=== PATIENT | male | born 1940 | race Caucasian/White ===

== ENCOUNTER 2019-09-29 08:51 | Inpatient (IN) | payer MEDICARE ==
[2019-09-29] MEDS ORDERED: Potassium Chloride 20 MEQ in Premix Bag 1 BAG IV ONE ×2 (09:59→11:00)
[2019-09-29] MEDS: Sodium Chloride 0.9% 10 ML Syringe FLUSH PRN ×2 (10:20→20:51)
[2019-09-29] MEDS: NS + KCl 20mEq/L 1,000 ML IV SCH ×2 (10:22→20:12)
--- NOTE | 2019-09-29 10:34 | EDM.PDOC ---
ED HPI GENERAL MEDICAL PROBLEM - General Chief Complaint: General Stated Complaint: WEAKNESS Time Seen by Provider: 09/29/19 09:00 Source of Information: Reports: Patient, Family History Limitations: Reports: Other (dementia) - History of Present Illness INITIAL COMMENTS - FREE TEXT/NARRATIVE: pt with Hx of dementia, comes by EMS from home with , with concerns for gen weakness, confusion, poor feeding and unwitnessed fall this morning with no injuries, pt here on arrival has stable vitals , alert and follow simple commands, he has dementia and unable to provide Hx, pt Hx was obtained from his , she report chronic confusion for the past 3 years and gradual decline in pt condition since then, states pt is hardly leaving his bed and hardly eat anything lately, states he is frequently incontinent to stool and urine, continue to smoke and denies alcohol use. - Related Data Allergies Allergy/AdvReac Type Severity Reaction Status Date / Time No Known Allergies Allergy Unverified 09/29/19 09:11 Home Meds: Home Meds Aspirin 81 mg PO DAILY 09/29/19 [History] Cholecalciferol (Vitamin D3) [Vitamin D3] 1,000 unit PO DAILY 09/29/19 [History] Lisinopril/Hydrochlorothiazide [Lisinopril-Hctz 20-12.5 mg Tab] 1 tab DAILY 09/29/19 [History] Past Medical History Cardiovascular History: Reports: Hypertension Psychiatric History: Reports: Addiction, Dementia Other Psychiatric History: hx etoh abuse - Infectious Disease History Infectious Disease History: Reports: Chicken Pox, Measles, Mumps - Past Surgical History GI Surgical History: Reports: Appendectomy Social & Family History - Family History Family Medical History: Noncontributory - Tobacco Use Smoking Status *Q: Current Every Day Smoker Years of Tobacco use: 55 Packs/Tins Daily: 1 - Caffeine Use Caffeine Use: Reports: Soda - Recreational Drug Use Recreational Drug Use: No ED ROS GENERAL - Review of Systems Review Of Systems: See Below (secondary to dementia.) Constitutional: Denies: Fever ED EXAM, GENERAL - Physical Exam Exam: See Below Exam Limited By: Altered Mental Status General Appearance: Mild Distress, Other (pt is disheveled and cachectic) Ears: Normal External Exam Nose: Normal Inspection, Normal Mucosa Throat/Mouth: Normal Inspection Head: Atraumatic Neck: Normal Inspection, Supple Respiratory/Chest: No Respiratory Distress, Lungs Clear Cardiovascular: Normal Peripheral Pulses, Regular Rate, Rhythm GI/Abdominal: Normal Bowel Sounds, Soft, Non-Tender, No Distention Back Exam: Normal Inspection Extremities: Normal Inspection, Normal Range of Motion Neurological: Alert, CN II-XII Intact, Normal Reflexes. No: Normal Cognition Psychiatric: Anxious Skin Exam: Warm Course - Vital Signs Text/Narrative:: labs/ imaging / EKG results were explained to pt ... pt has progressive deconditioning and critical hypokalemia . will admit inpatient on tell , hold lisinopril/HCT , replace hypokalemia . pt does not have advanced directives and his indicated her wishes for a no code status for the pt. discussed with Dr Feliciano and he was in acceptance of pt care. Last Recorded V/S: Last Vital Signs Temp 37.0 C 09/29/19 08:51 Pulse 107 H 09/29/19 08:51 Resp 18 09/29/19 08:51 BP 110/72 09/29/19 08:51 Pulse Ox 98 09/29/19 08:51 - Orders/Labs/Meds Orders: Active Orders 24 hr Category Date Time Status Chest 1V Frontal [CR] Stat Exams 09/29/19 09:20 Taken Head wo Cont [CT] Stat Exams 09/29/19 09:20 Taken UA W/MICROSCOPIC [URIN] Routine Lab 09/29/19 09:19 Ordered NS + KCl 20mEq/L [Normal Saline with 20 mEq KCl] 1,000 Med 09/29/19 10:00 Active ml IV ASDIRECTED Potassium Chloride [KCL 20 MEQ in Water 100 ML] 20 meq Med 09/29/19 11:00 Active Premix Bag 1 bag IV ONETIME Sodium Chloride 0.9% [Saline Flush] Med 09/29/19 09:59 Active 10 ml FLUSH ASDIRECTED PRN Peripheral IV Insertion Adult [OM.PC] Routine Oth 09/29/19 09:59 Ordered Medication Orders Potassium Chloride/Sodium Chloride (Normal Saline With 20 Meq Kcl) 1,000 mls @ 100 mls/hr IV ASDIRECTED KARUNA Last Admin: 09/29/19 10:22 Dose: 100 mls/hr Documented by: RERE Potassium Chloride 20 meq/ (Premix) 100 mls @ 50 mls/hr IV ONETIME ONE Stop: 09/29/19 12:59 Sodium Chloride (Saline Flush) 10 ml FLUSH ASDIRECTED PRN PRN Reason: Keep Vein Open Last Admin: 09/29/19 10:20 Dose: 10 ml Documented by: RERE Labs: Laboratory Tests 09/29/19 09/29/19 Range/Units 09:00 09:00 WBC 12.4 H (4.5-12.0) X10-3/uL RBC 4.16 L (4.30-5.75) x10(6)uL Hgb 12.9 L (13.5-17.8) g/dL Hct 39.3 (30.0-51.3) % MCV 94.7 (80-96) fL MCH 31.0 (27.7-33.6) pg MCHC 32.8 (32.2-35.4) g/dL RDW 15.4 (11.5-15.5) % Plt Count 318 (125-369) X10(3)uL MPV 8.6 (7.4-10.4) fL Neut % (Auto) 80.0 (46-82) % Lymph % (Auto) 15.3 (13-37) % [place] % (Auto) 4.2 (4-12) % Eos % (Auto) 0 L (1.0-5.0) % Baso % (Auto) 0 (0-2) % Neut # (Auto) 10.0 H (1.6-8.3) # Lymph # (Auto) 1.9 (0.6-5.0) # [place] # (Auto) 0.5 (0.0-1.3) # Eos # (Auto) 0.0 (0.0-0.8) # Baso # (Auto) 0.0 (0.0-0.2) # Sodium 141 (135-145) mmol/L Potassium < 1.5 L* (3.5-5.3) mmol/L Chloride 97 L (100-110) mmol/L Carbon Dioxide 36 H (21-32) mmol/L BUN 20 H (7-18) mg/dL Creatinine 1.5 H (0.70-1.30) mg/dL Est Cr Clr Drug Dosing 30.43 mL/min Estimated GFR (MDRD) 45 L (>60) BUN/Creatinine Ratio 13.3 (9-20) Glucose 123 H (80-116) mg/dL Calcium 7.5 L (8.6-10.2) mg/dL Total Bilirubin 0.9 (0.1-1.3) mg/dL AST 45 H (5-25) IU/L ALT 18 (12-36) U/L Alkaline Phosphatase 79 (56-112) IU/L Total Protein 6.5 (6.0-8.0) g/dL Albumin 2.4 L (3.2-4.6) g/dL Globulin 4.1 g/dL Albumin/Globulin Ratio 0.6 Meds: Medications Generic Name Dose Route Start Last Admin Trade Name Freq PRN Reason Stop Dose Admin Potassium Chloride/Sodium Chloride 1,000 mls @ 100 mls/hr 09/29/19 10:00 09/29/19 10:22 Normal Saline With 20 Meq Kcl IV 100 mls/hr ASDIRECTED KARUNA Administration Potassium Chloride 20 meq/ 100 mls @ 50 mls/hr 09/29/19 11:00 Premix IV 09/29/19 12:59 ONETIME ONE Sodium Chloride 10 ml 09/29/19 09:59 09/29/19 10:20 Saline Flush FLUSH 10 ml ASDIRECTED PRN Administration Keep Vein Open Discontinued Medications Generic Name Dose Route Start Last Admin Trade Name Freq PRN Reason Stop Dose Admin Potassium Chloride 20 meq/ 100 mls @ 50 mls/hr 09/29/19 09:59 09/29/19 10:24 Premix IV 09/29/19 11:58 50 mls/hr ONETIME ONE Administration Potassium Chloride 20 meq 09/29/19 11:00 Potassium Chloride IV 09/29/19 11:01 ONETIME ONE Departure - Departure Time of Disposition: 12:09 Disposition: Admitted As Inpatient 68 Clinical Impression: Hypokalemia - Discharge Information Referrals: Alexandrea Cervantes NP [Primary Care Provider] - Forms: ED Department Discharge Sepsis Event Note (ED) - Evaluation Sepsis Screening Result: No Definite Risk - Focused Exam Vital Signs: Vital Signs Temp Pulse Resp BP Pulse Ox 09/29/19 08:51 37.0 C 107 H 18 110/72 98 - My Orders Last 24 Hours: My Active Orders 09/29/19 09:19 UA W/MICROSCOPIC [URIN] Routine 09/29/19 09:20 Chest 1V Frontal [CR] Stat Head wo Cont [CT] Stat 09/29/19 09:59 Sodium Chloride 0.9% [Saline Flush] 10 ml FLUSH ASDIRECTED PRN Peripheral IV Insertion Adult [OM.PC] Routine 09/29/19 10:00 NS + KCl 20mEq/L [Normal Saline with 20 mEq KCl] 1,000 ml IV ASDIRECTED 09/29/19 11:00 Potassium Chloride [KCL 20 MEQ in Water 100 ML] 20 meq Premix Bag 1 bag IV ONETIME - Assessment/Plan Last 24 Hours: My Active Orders 09/29/19 09:19 UA W/MICROSCOPIC [URIN] Routine 09/29/19 09:20 Chest 1V Frontal [CR] Stat Head wo Cont [CT] Stat 09/29/19 09:59 Sodium Chloride 0.9% [Saline Flush] 10 ml FLUSH ASDIRECTED PRN Peripheral IV Insertion Adult [OM.PC] Routine 09/29/19 10:00 NS + KCl 20mEq/L [Normal Saline with 20 mEq KCl] 1,000 ml IV ASDIRECTED 09/29/19 11:00 Potassium Chloride [KCL 20 MEQ in Water 100 ML] 20 meq Premix Bag 1 bag IV ONETIME
[2019-09-29] MEDS ORDERED: Potassium Chloride 40 MEQ/20 ML SDV IV ONE (11:00)
[2019-09-29] MEDS ORDERED: Ondansetron 4 MG Tab.DIS PO PRN (12:15)
[2019-09-29] MEDS ORDERED: Sodium Chloride 0.9% 1,000 ML IV SCH (12:15)
[2019-09-29] MEDS ORDERED: Acetaminophen 325 MG Tab PO PRN (12:15)
[2019-09-29] MEDS ORDERED: Ibuprofen 600 MG Tab PO PRN (12:15)
[2019-09-29] MEDS ORDERED: Sodium Chloride 0.9% 1,000 ML IV ONE (17:45)
[2019-09-29] MEDS ORDERED: Nicotine 21 MG/24 Hr Patch TRDERM ONE (17:57)
--- NOTE | 2019-09-29 17:57 | PCM.HP.2 ---
H&P History of Present Illness - General Date of Service: 09/29/19 Admit Problem/Dx: Admission Diagnosis/Problem Admission Diagnosis/Problem Hypokalemia Source of Information: Patient, Family, Old Records History Limitations: Reports: No Limitations - History of Present Illness Initial Comments - Free Text/Narative: Jean Marie presents because of weakness, a fall at home, anorexia/weight loss. His reported that the symptoms have been progressively worsening over the last few months but last week he has hardly eaten anything. He has a history of hypertension, tobacco abuse. He does endorse feeling feeling depressed and tired 2 days lost excess amount of weight. There's been no vomiting ,but he does endorse chronic diarrhea. No chest pain or shortness of breath. - Related Data Allergies/Adverse Reactions: Allergies Allergy/AdvReac Type Severity Reaction Status Date / Time No Known Allergies Allergy Unverified 09/29/19 09:11 Home Medications: Home Meds Aspirin 81 mg PO DAILY 09/29/19 [History] Cholecalciferol (Vitamin D3) [D3-2000] 125 mcg PO DAILY 09/29/19 [History] Iron 27 mg PO DAILY 09/29/19 [History] Lisinopril/Hydrochlorothiazide [Lisinopril-Hctz 20-12.5 mg Tab] 1 tab DAILY 0 09/29/19 [History] Past Medical History HEENT History: Reports: Epistaxis Cardiovascular History: Reports: Hypertension Gastrointestinal History: Reports: None Genitourinary History: Reports: None Neurological History: Reports: None Psychiatric History: Reports: Addiction, Dementia, Depression Other Psychiatric History: hx etoh abuse - Infectious Disease History Infectious Disease History: Reports: Chicken Pox, Measles, Mumps - Past Surgical History HEENT Surgical History: Reports: Tonsillectomy, Other (See Below) Other HEENT Surgeries/Procedures: remove teeth for dentures Cardiovascular Surgical History: Reports: None GI Surgical History: Reports: Appendectomy Male Surgical History: Reports: Circumcision Neurological Surgical History: Reports: None Dermatological Surgical History: Reports: None Social & Family History - Family History Family Medical History: Noncontributory - Tobacco Use Smoking Status *Q: Current Every Day Smoker Years of Tobacco use: 60 Packs/Tins Daily: 0.5 Used Tobacco, but Quit: No Second Hand Smoke Exposure: No - Caffeine Use Caffeine Use: Reports: Soda - Recreational Drug Use Recreational Drug Use: No H&P Review of Systems - Review of Systems: Review Of Systems: Comprehensive ROS is negative, except as noted in HPI. Exam - Exam Exam: See Below - Vital Signs Vital Signs: Last Vital Signs Temp 97 F 09/29/19 16:00 Pulse 56 L 09/29/19 16:00 Resp 16 09/29/19 16:00 BP 99/62 09/29/19 16:00 Pulse Ox 96 09/29/19 16:00 Weight: 51.982 kg - Exam Quality Assessment: Skin Breakdown General: Lethargic, Other (Cachetitic,poorly groomed.) HEENT: PERRLA, Hearing Intact, Mucosa Moist & [place], Nares Patent, Normal Nasal Septum, Posterior Pharynx Clear, Conjunctiva Clear, EOMI, EACs Clear, TMs Clear Neck: Supple, Trachea Midline, 2 Lungs: Clear to Auscultation, Normal Respiratory Effort Cardiovascular: Regular Rate, Regular Rhythm GI/Abdominal Exam: Normal Bowel Sounds, Soft, Non-Tender, No Organomegaly, No Distention, No Abnormal Bruit, No Mass, Pelvis Stable (Male) Exam: Deferred Rectal (Males) Exam: Deferred Back Exam: Normal Inspection, Full Range of Motion, NT Extremities: Normal Inspection, Normal Range of Motion, Non-Tender, No Pedal Edema, Normal Capillary Refill Skin: Warm, Dry, Intact Neurological: Cranial Nerves Intact, Reflexes Equal Bilateral Neuro Extensive - Mental Status: Alert, Oriented x3, Normal Mood/Affect, Normal Cognition Neuro Extensive - Motor, Sensory, Reflexes: CN II-XII Intact, Normal Gait, Normal Reflexes Psychiatric: Alert, Normal Affect, Normal Mood - Patient Data Lab Results Last 24 hrs: Laboratory Results - last 24 hr 09/29/19 09/29/19 Range/Units 09:00 09:00 WBC 12.4 H (4.5-12.0) X10-3/uL RBC 4.16 L (4.30-5.75) x10(6)uL Hgb 12.9 L (13.5-17.8) g/dL Hct 39.3 (30.0-51.3) % MCV 94.7 (80-96) fL MCH 31.0 (27.7-33.6) pg MCHC 32.8 (32.2-35.4) g/dL RDW 15.4 (11.5-15.5) % Plt Count 318 (125-369) X10(3)uL MPV 8.6 (7.4-10.4) fL Neut % (Auto) 80.0 (46-82) % Lymph % (Auto) 15.3 (13-37) % [place] % (Auto) 4.2 (4-12) % Eos % (Auto) 0 L (1.0-5.0) % Baso % (Auto) 0 (0-2) % Neut # (Auto) 10.0 H (1.6-8.3) # Lymph # (Auto) 1.9 (0.6-5.0) # [place] # (Auto) 0.5 (0.0-1.3) # Eos # (Auto) 0.0 (0.0-0.8) # Baso # (Auto) 0.0 (0.0-0.2) # Sodium 141 (135-145) mmol/L Potassium < 1.5 L* (3.5-5.3) mmol/L Chloride 97 L (100-110) mmol/L Carbon Dioxide 36 H (21-32) mmol/L BUN 20 H (7-18) mg/dL Creatinine 1.5 H (0.70-1.30) mg/dL Est Cr Clr Drug Dosing 30.43 mL/min Estimated GFR (MDRD) 45 L (>60) BUN/Creatinine Ratio 13.3 (9-20) Glucose 123 H (80-116) mg/dL Calcium 7.5 L (8.6-10.2) mg/dL Total Bilirubin 0.9 (0.1-1.3) mg/dL AST 45 H (5-25) IU/L ALT 18 (12-36) U/L Alkaline Phosphatase 79 (56-112) IU/L Total Protein 6.5 (6.0-8.0) g/dL Albumin 2.4 L (3.2-4.6) g/dL Globulin 4.1 g/dL Albumin/Globulin Ratio 0.6 Result Diagrams: 09/29/19 09:00 09/29/19 09:00 EKG INTERPRETATION EKG Date: 09/29/19 Rhythm: NSR ST-T: Depressed Comparison: NA - No Prior EKG Sepsis Event Note - Evaluation Sepsis Screening Result: No Definite Risk - Focused Exam Vital Signs: Vital Signs Temp Temp Pulse Resp BP Pulse Ox 09/29/19 16:00 97 F 56 L 16 99/62 96 09/29/19 13:20 98.5 F 58 L 16 115/74 98 09/29/19 12:03 58 L 18 147/102 H 98 09/29/19 10:57 68 18 119/72 93 L 09/29/19 09:31 51 L 18 120/58 L 99 09/29/19 08:51 98.6 F 107 H 18 110/72 98 Date Exam was Performed: 09/29/19 Time Exam was Performed: 17:53 - Problem List (1) Cachexia SNOMED Code(s): 135229979 ICD Code: R64 - CACHEXIA Status: Acute Current Visit: Yes (2) Tobacco abuse SNOMED Code(s): 297844446 ICD Code: Z72.0 - TOBACCO USE Status: Acute Current Visit: Yes (3) HTN (hypertension) SNOMED Code(s): 03619333 ICD Code: I10 - ESSENTIAL (PRIMARY) HYPERTENSION Status: Acute Current Visit: Yes Qualifiers: Hypertension type: essential hypertension Qualified Code(s): I10 - Essential (primary) hypertension (4) MDD (major depressive disorder) SNOMED Code(s): 308799462 ICD Code: F32.9 - MAJOR DEPRESSIVE DISORDER, SINGLE EPISODE, UNSPECIFIED Status: Acute Current Visit: Yes Qualifiers: Major depression recurrence: single episode (5) Hypokalemia SNOMED Code(s): 31156542 ICD Code: E87.6 - HYPOKALEMIA Status: Acute Current Visit: Yes (6) Anorexia SNOMED Code(s): 84616415 ICD Code: R63.0 - ANOREXIA Status: Acute Current Visit: Yes (7) ISABELA (acute kidney injury) SNOMED Code(s): 16974027, 14799603 ICD Code: N17.9 - ACUTE KIDNEY FAILURE, UNSPECIFIED Status: Acute Current Visit: Yes Problem List Initiated/Reviewed/Updated: Yes Orders Last 24hrs: Active Orders 24 hr Category Date Time Status Patient Status [ADT] Routine ADT 09/29/19 12:16 Active Oxygen Therapy [RC] PRN Care 09/29/19 12:16 Active Telemetry Monitoring [Cardiac Monitoring] [RC] .As Care 09/29/19 12:21 Active Directed VTE/DVT Education [RC] Per Unit Routine Care 09/29/19 12:16 Active Vital Signs [RC] QSHIFT Care 09/29/19 12:16 Active Regular Diet [DIET] Diet 09/30/19 Breakfast Ordered Chest 1V Frontal [CR] Stat Exams 09/29/19 09:20 Taken Head wo Cont [CT] Stat Exams 09/29/19 09:20 Taken BASIC METABOLIC PANEL,BMP [CHEM] Routine Lab 09/29/19 18:00 Ordered CBC WITH AUTO DIFF [HEME] AM Lab 09/30/19 05:11 Ordered COMPREHENSIVE METABOLIC PN,CMP [CHEM] AM Lab 09/30/19 05:11 Ordered MAGNESIUM [CHEM] AM Lab 09/30/19 05:11 Ordered UA W/MICROSCOPIC [URIN] Routine Lab 09/29/19 09:19 Ordered Acetaminophen [Tylenol] Med 09/29/19 12:15 Active 650 mg PO Q4H PRN Aspirin [Halfprin] Med 09/30/19 09:00 Active 81 mg PO DAILY Cholecalciferol (Vitamin D3) [Vitamin D3] Med 09/30/19 09:00 Active 125 mcg PO DAILY Ibuprofen [Motrin] Med 09/29/19 12:15 Active 600 mg PO Q6H PRN Iron [Iron] Med 09/30/19 09:00 Pending 27 mg PO DAILY Megestrol [Megace 40 MG/ML Susp] Med 09/30/19 09:00 Active 400 mg PO DAILY NS + KCl 20mEq/L [Normal Saline with 20 mEq KCl] 1,000 Med 09/29/19 10:00 Active ml IV ASDIRECTED Ondansetron [Zofran ODT] Med 09/29/19 12:15 Active 4 mg PO Q4H PRN Potassium Chloride [KCL 20 MEQ in Water 100 ML] 20 meq Med 09/29/19 18:00 Active Premix Bag 1 bag IV Q6H Sodium Chloride 0.9% [Normal Saline] 1,000 ml Med 09/29/19 17:45 Active IV ONETIME Sodium Chloride 0.9% [Saline Flush] Med 09/29/19 09:59 Active 10 ml FLUSH ASDIRECTED PRN Peripheral IV Insertion Adult [OM.PC] Routine Oth 09/29/19 09:59 Ordered Resuscitation Status Routine Resus Stat 09/29/19 12:15 Ordered Medication Orders Acetaminophen (Tylenol) 650 mg PO Q4H PRN PRN Reason: Pain (Mild 1-3)/fever Aspirin (Halfprin) 81 mg PO DAILY KARUNA Cholecalciferol (Vitamin D3) 125 mcg PO DAILY KARUNA Potassium Chloride/Sodium Chloride (Normal Saline With 20 Meq Kcl) 1,000 mls @ 100 mls/hr IV ASDIRECTED KARUNA Last Admin: 09/29/19 10:22 Dose: 100 mls/hr Documented by: RERE Sodium Chloride (Normal Saline) 1,000 mls @ 999 mls/hr IV ONETIME ONE Stop: 09/29/19 18:45 Potassium Chloride 20 meq/ (Premix) 100 mls @ 50 mls/hr IV Q6H KARUNA Ibuprofen (Motrin) 600 mg PO Q6H PRN PRN Reason: Pain (mild 1-3) Megestrol Acetate (Megace 40 Mg/Ml Susp) 400 mg PO DAILY [facility] Non-Formulary Medication (Iron [Iron]) 27 mg PO DAILY KARUNA Ondansetron HCl (Zofran Odt) 4 mg PO Q4H PRN PRN Reason: nausea, able to take PO Sodium Chloride (Saline Flush) 10 ml FLUSH ASDIRECTED PRN PRN Reason: Keep Vein Open Last Admin: 09/29/19 10:20 Dose: 10 ml Documented by: RERE Assessment/Plan Comment:: I will give him fluids, and replace potassium. I've added Megace to help his appetite and will start an antidepressant,mirtazapine. He probably needs further workup possibly CT chest abdomen pelvis colonoscopy if he so agrees.
[2019-09-29] MEDS: Potassium Chloride 20 MEQ in Premix Bag 1 BAG IV SCH ×2 (18:32→23:24)
[2019-09-29] MEDS: Mirtazapine 30 MG Tab PO SCH (20:27)
[2019-09-30] MEDS: Potassium Chloride 20 MEQ in Premix Bag 1 BAG IV SCH ×4 (05:07→23:29)
[2019-09-30] MEDS: NS + KCl 20mEq/L 1,000 ML IV SCH ×2 (07:27→17:58)
[2019-09-30] MEDS ORDERED: IRON 27 MG PO SCH (09:00)
--- NOTE | 2019-09-30 09:17 | PCM.PN ---
- General Info Date of Service: 09/30/19 Subjective Update: He feels weak,wants to go home. Agitated at times. Functional Status: Reports: Pain Controlled - Review of Systems HEENT: Reports: No Symptoms Pulmonary: Reports: No Symptoms Cardiovascular: Reports: No Symptoms Gastrointestinal: Reports: No Symptoms - Patient Data Vitals - Most Recent: Last Vital Signs Temp 98.1 F 09/30/19 07:23 Pulse 90 09/30/19 00:00 Resp 20 09/30/19 07:23 BP 127/84 09/30/19 07:23 Pulse Ox 99 09/30/19 07:23 Weight - Most Recent: 51.982 kg I&O - Last 24 Hours: Intake & Output 09/29/19 09/30/19 09/30/19 22:59 06:59 14:59 Intake Total 100 1856 Balance 100 1856 Lab Results Last 24 Hours: Laboratory Results - last 24 hr 09/29/19 09/29/19 09/29/19 Range/Units 09:00 09:00 18:00 WBC 12.4 H (4.5-12.0) X10-3/uL RBC 4.16 L (4.30-5.75) x10(6)uL Hgb 12.9 L (13.5-17.8) g/dL Hct 39.3 (30.0-51.3) % MCV 94.7 (80-96) fL MCH 31.0 (27.7-33.6) pg MCHC 32.8 (32.2-35.4) g/dL RDW 15.4 (11.5-15.5) % Plt Count 318 (125-369) X10(3)uL MPV 8.6 (7.4-10.4) fL Neut % (Auto) 80.0 (46-82) % Lymph % (Auto) 15.3 (13-37) % [place] % (Auto) 4.2 (4-12) % Eos % (Auto) 0 L (1.0-5.0) % Baso % (Auto) 0 (0-2) % Neut # (Auto) 10.0 H (1.6-8.3) # Lymph # (Auto) 1.9 (0.6-5.0) # [place] # (Auto) 0.5 (0.0-1.3) # Eos # (Auto) 0.0 (0.0-0.8) # Baso # (Auto) 0.0 (0.0-0.2) # Sodium 141 141 (135-145) mmol/L Potassium < 1.5 L* 1.6 L* (3.5-5.3) mmol/L Chloride 97 L 100 (100-110) mmol/L Carbon Dioxide 36 H 34 H (21-32) mmol/L BUN 20 H 21 H (7-18) mg/dL Creatinine 1.5 H 1.3 (0.70-1.30) mg/dL Est Cr Clr Drug Dosing 30.43 34.99 mL/min Estimated GFR (MDRD) 45 L 54 L (>60) BUN/Creatinine Ratio 13.3 16.2 (9-20) Glucose 123 H 116 (80-116) mg/dL Calcium 7.5 L 7.1 L (8.6-10.2) mg/dL Magnesium (1.8-2.5) mg/dL Total Bilirubin 0.9 (0.1-1.3) mg/dL AST 45 H (5-25) IU/L ALT 18 (12-36) U/L Alkaline Phosphatase 79 (56-112) IU/L Total Protein 6.5 (6.0-8.0) g/dL Albumin 2.4 L (3.2-4.6) g/dL Globulin 4.1 g/dL Albumin/Globulin Ratio 0.6 Urine Color (YELLOW) Urine Appearance (CLEAR) Urine pH (5.0-6.5) Ur Specific [place] (1.010-1.025) Urine Protein (NEGATIVE) mg/dL Urine Glucose (UA) (NORMAL) mg/dL Urine Ketones (NEGATIVE) mg/dL Urine Occult Blood (NEGATIVE) Urine Nitrite (NEGATIVE) Urine Bilirubin (NEGATIVE) Urine Urobilinogen (NEGATIVE) mg/dL Ur Leukocyte Esterase (NEGATIVE) SARS Virus RNA (PCR) (NEGATIVE) 09/29/19 09/30/19 09/30/19 Range/Units 22:00 01:47 06:30 WBC 10.5 (4.5-12.0) X10-3/uL RBC 3.48 L (4.30-5.75) x10(6)uL Hgb 11.0 L (13.5-17.8) g/dL Hct 32.8 (30.0-51.3) % MCV 94.4 (80-96) fL MCH 31.8 (27.7-33.6) pg MCHC 33.6 (32.2-35.4) g/dL RDW 15.7 H (11.5-15.5) % Plt Count 253 (125-369) X10(3)uL MPV 8.9 (7.4-10.4) fL Neut % (Auto) 74.7 (46-82) % Lymph % (Auto) 20.2 (13-37) % [place] % (Auto) 3.4 L (4-12) % Eos % (Auto) 1 (1.0-5.0) % Baso % (Auto) 1 (0-2) % Neut # (Auto) 7.8 (1.6-8.3) # Lymph # (Auto) 2.1 (0.6-5.0) # [place] # (Auto) 0.4 (0.0-1.3) # Eos # (Auto) 0.1 (0.0-0.8) # Baso # (Auto) 0.1 (0.0-0.2) # Sodium (135-145) mmol/L Potassium (3.5-5.3) mmol/L Chloride (100-110) mmol/L Carbon Dioxide (21-32) mmol/L BUN (7-18) mg/dL Creatinine (0.70-1.30) mg/dL Est Cr Clr Drug Dosing mL/min Estimated GFR (MDRD) (>60) BUN/Creatinine Ratio (9-20) Glucose (80-116) mg/dL Calcium (8.6-10.2) mg/dL Magnesium (1.8-2.5) mg/dL Total Bilirubin (0.1-1.3) mg/dL AST (5-25) IU/L ALT (12-36) U/L Alkaline Phosphatase (56-112) IU/L Total Protein (6.0-8.0) g/dL Albumin (3.2-4.6) g/dL Globulin g/dL Albumin/Globulin Ratio Urine Color Yellow (YELLOW) Urine Appearance Slightly cloudy (CLEAR) Urine pH 6.0 (5.0-6.5) Ur Specific [place] 1.020 (1.010-1.025) Urine Protein 30 H (NEGATIVE) mg/dL Urine Glucose (UA) Normal (NORMAL) mg/dL Urine Ketones Negative (NEGATIVE) mg/dL Urine Occult Blood Moderate H (NEGATIVE) Urine Nitrite Negative (NEGATIVE) Urine Bilirubin Small H (NEGATIVE) Urine Urobilinogen Normal (NEGATIVE) mg/dL Ur Leukocyte Esterase Large H (NEGATIVE) SARS Virus RNA (PCR) Negative (NEGATIVE) 09/30/19 Range/Units 06:30 WBC (4.5-12.0) X10-3/uL RBC (4.30-5.75) x10(6)uL Hgb (13.5-17.8) g/dL Hct (30.0-51.3) % MCV (80-96) fL MCH (27.7-33.6) pg MCHC (32.2-35.4) g/dL RDW (11.5-15.5) % Plt Count (125-369) X10(3)uL MPV (7.4-10.4) fL Neut % (Auto) (46-82) % Lymph % (Auto) (13-37) % [place] % (Auto) (4-12) % Eos % (Auto) (1.0-5.0) % Baso % (Auto) (0-2) % Neut # (Auto) (1.6-8.3) # Lymph # (Auto) (0.6-5.0) # [place] # (Auto) (0.0-1.3) # Eos # (Auto) (0.0-0.8) # Baso # (Auto) (0.0-0.2) # Sodium 145 (135-145) mmol/L Potassium 1.8 L* (3.5-5.3) mmol/L Chloride 105 D (100-110) mmol/L Carbon Dioxide 29 (21-32) mmol/L BUN 17 (7-18) mg/dL Creatinine 1.1 (0.70-1.30) mg/dL Est Cr Clr Drug Dosing 41.35 mL/min Estimated GFR (MDRD) > 60 (>60) BUN/Creatinine Ratio 15.5 (9-20) Glucose 99 (80-116) mg/dL Calcium 6.8 L (8.6-10.2) mg/dL Magnesium 1.3 L (1.8-2.5) mg/dL Total Bilirubin 0.7 (0.1-1.3) mg/dL AST 67 H D (5-25) IU/L ALT 20 D (12-36) U/L Alkaline Phosphatase 69 (56-112) IU/L Total Protein 5.6 L (6.0-8.0) g/dL Albumin 2.1 L (3.2-4.6) g/dL Globulin 3.5 g/dL Albumin/Globulin Ratio 0.6 Urine Color (YELLOW) Urine Appearance (CLEAR) Urine pH (5.0-6.5) Ur Specific [place] (1.010-1.025) Urine Protein (NEGATIVE) mg/dL Urine Glucose (UA) (NORMAL) mg/dL Urine Ketones (NEGATIVE) mg/dL Urine Occult Blood (NEGATIVE) Urine Nitrite (NEGATIVE) Urine Bilirubin (NEGATIVE) Urine Urobilinogen (NEGATIVE) mg/dL Ur Leukocyte Esterase (NEGATIVE) SARS Virus RNA (PCR) (NEGATIVE) Med Orders - Current: Current Medications Acetaminophen (Tylenol) 650 mg PO Q4H PRN PRN Reason: Pain (Mild 1-3)/fever Last Admin: 09/30/19 04:01 Dose: 650 mg Documented by: Aspirin (Halfprin) 81 mg PO DAILY [facility] Ceftriaxone Sodium (Rocephin) 1 gm IVPUSH Q24H [facility] Cholecalciferol (Vitamin D3) 125 mcg PO DAILY [facility] Potassium Chloride/Sodium Chloride (Normal Saline With 20 Meq Kcl) 1,000 mls @ 100 mls/hr IV ASDIRECTED [facility] Last Admin: 09/30/19 07:27 Dose: 100 mls/hr Documented by: Potassium Chloride 20 meq/ (Premix) 100 mls @ 50 mls/hr IV Q6H [facility] Last Admin: 09/30/19 05:07 Dose: 50 mls/hr Documented by: Ibuprofen (Motrin) 600 mg PO Q6H PRN PRN Reason: Pain (mild 1-3) Megestrol Acetate (Megace 40 Mg/Ml Susp) 400 mg PO DAILY [facility] Mirtazapine (Remeron) 30 mg PO BEDTIME [facility] Last Admin: 09/29/19 20:27 Dose: 30 mg Documented by: Non-Formulary Medication (Iron [Iron]) 27 mg PO DAILY [facility] Ondansetron HCl (Zofran Odt) 4 mg PO Q4H PRN PRN Reason: nausea, able to take PO Potassium Chloride (Klor-Con M20) 40 meq PO TID [facility] Sodium Chloride (Saline Flush) 10 ml FLUSH ASDIRECTED PRN PRN Reason: Keep Vein Open Last Admin: 09/29/19 20:51 Dose: 10 ml Documented by: Discontinued Medications Potassium Chloride 20 meq/ (Premix) 100 mls @ 50 mls/hr IV ONETIME ONE Stop: 09/29/19 11:58 Last Admin: 09/29/19 10:24 Dose: 50 mls/hr Documented by: Potassium Chloride 20 meq/ (Premix) 100 mls @ 50 mls/hr IV ONETIME ONE Stop: 09/29/19 12:59 Last Admin: 09/29/19 13:39 Dose: 50 mls/hr Documented by: Sodium Chloride (Normal Saline) 1,000 mls @ 125 mls/hr IV ASDIRECTED [facility] Sodium Chloride (Normal Saline) 1,000 mls @ 999 mls/hr IV ONETIME ONE Stop: 09/29/19 18:45 Last Admin: 09/29/19 19:41 Dose: 999 mls/hr Documented by: Nicotine (Habitrol) 21 mg TRDERM ONETIME ONE Stop: 09/29/19 17:58 Last Admin: 09/29/19 18:36 Dose: 21 mg Documented by: Potassium Chloride (Potassium Chloride) 20 meq IV ONETIME ONE Stop: 09/29/19 11:01 - Exam General: Alert, Oriented, Lethargic HEENT: Pupils Equal Neck: Supple Lungs: Clear to Auscultation GI/Abdominal Exam: Normal Bowel Sounds Skin: Warm Sepsis Event Note - Evaluation Sepsis Screening Result: No Definite Risk - Focused Exam Vital Signs: Vital Signs Temp Temp Pulse Resp BP Pulse Ox 09/30/19 07:23 98.1 F 20 127/84 99 09/30/19 00:00 97.2 F 90 16 108/62 98 Date Exam was Performed: 09/30/19 Time Exam was Performed: 09:14 - Problem List & Annotations (1) Cachexia SNOMED Code(s): 716206335 Code(s): R64 - CACHEXIA Status: Acute Current Visit: Yes (2) Tobacco abuse SNOMED Code(s): 636964722 Code(s): Z72.0 - TOBACCO USE Status: Acute Current Visit: Yes (3) HTN (hypertension) SNOMED Code(s): 97418520 Code(s): I10 - ESSENTIAL (PRIMARY) HYPERTENSION Status: Acute Current Visit: Yes Qualifiers: Hypertension type: essential hypertension Qualified Code(s): I10 - Essential (primary) hypertension (4) MDD (major depressive disorder) SNOMED Code(s): 378377161 Code(s): F32.9 - MAJOR DEPRESSIVE DISORDER, SINGLE EPISODE, UNSPECIFIED Status: Acute Current Visit: Yes Qualifiers: Major depression recurrence: single episode (5) Hypokalemia SNOMED Code(s): 10947421 Code(s): E87.6 - HYPOKALEMIA Status: Acute Current Visit: Yes (6) Anorexia SNOMED Code(s): 05359197 Code(s): R63.0 - ANOREXIA Status: Acute Current Visit: Yes (7) ISABELA (acute kidney injury) SNOMED Code(s): 86899679, 73408687 Code(s): N17.9 - ACUTE KIDNEY FAILURE, UNSPECIFIED Status: Acute Current Visit: Yes (8) Asymptomatic bacteriuria SNOMED Code(s): 850911109 Code(s): R82.71 - BACTERIURIA Status: Acute Current Visit: Yes - Problem List Review Problem List Initiated/Reviewed/Updated: Yes - My Orders Last 24 Hours: My Active Orders 09/29/19 18:00 Potassium Chloride [KCL 20 MEQ in Water 100 ML] 20 meq Premix Bag 1 bag IV Q6H 09/29/19 21:00 Mirtazapine [Remeron] 30 mg PO BEDTIME 09/30/19 01:47 CULTURE URINE [RM] Routine 09/30/19 Breakfast Regular Diet [DIET] 09/30/19 09:00 Aspirin [Halfprin] 81 mg PO DAILY Cholecalciferol (Vitamin D3) [Vitamin D3] 125 mcg PO DAILY Iron [Iron] 27 mg PO DAILY Megestrol [Megace 40 MG/ML Susp] 400 mg PO DAILY 09/30/19 09:13 OT Evaluation and Treatment [CONS] Routine PT Evaluation and Treatment [CONS] Routine 09/30/19 09:15 cefTRIAXone [Rocephin] 1 gm IVPUSH Q24H 09/30/19 14:00 Potassium Chloride [Klor-Con M20] 40 meq PO TID 10/01/19 05:11 COMPREHENSIVE METABOLIC PN,CMP [CHEM] AM - Plan Plan:: I will add oral potassium. DC iron.
[2019-09-30] MEDS: Aspirin 81 MG Tab.EC PO SCH (09:33)
[2019-09-30] MEDS: cefTRIAXone 1 GM Vial IVPUSH SCH (09:43)
[2019-09-30] MEDS ORDERED: Cholecalciferol (Vitamin D3) 25 MCG Tab ONE (09:57)
[2019-09-30] MEDS ORDERED: Lidocaine 2% HCl 6 ML JEL.PF.APP ONE (10:35)
[2019-09-30] MEDS: Cholecalciferol (Vitamin D3) 25 MCG Tab PO SCH (11:08)
[2019-09-30] MEDS: Megestrol Susp 40 MG/ML ML (240 ML Bottle) PO SCH (12:48)
[2019-09-30] MEDS: Potassium Chloride 20 MEQ Tab.ER PO SCH ×2 (14:15→20:24)
[2019-09-30] MEDS: Sodium Chloride 0.9% 10 ML Syringe FLUSH PRN ×3 (17:00→18:30)
[2019-09-30] MEDS: Mirtazapine 30 MG Tab PO SCH (20:24)
[2019-10-01] MEDS: NS + KCl 20mEq/L 1,000 ML IV SCH ×2 (04:20→17:20)
[2019-10-01] MEDS: Potassium Chloride 20 MEQ in Premix Bag 1 BAG IV SCH ×3 (05:24→18:59)
--- NOTE | 2019-10-01 08:10 | PCM.PN ---
- General Info Date of Service: 10/01/19 Subjective Update: Confused.Also complains of RUQ pain.Not eating. - Review of Systems Pulmonary: Reports: No Symptoms Cardiovascular: Reports: No Symptoms Genitourinary: Reports: No Symptoms Musculoskeletal: Reports: No Symptoms - Patient Data Vitals - Most Recent: Last Vital Signs Temp 97.8 F 10/01/19 00:00 Pulse 90 09/30/19 00:00 Resp 16 10/01/19 00:00 BP 131/87 10/01/19 00:00 Pulse Ox 100 10/01/19 00:00 Weight - Most Recent: 51.982 kg I&O - Last 24 Hours: Intake & Output 09/30/19 10/01/19 10/01/19 22:59 06:59 14:59 Intake Total 1065 1532 Output Total 250 150 Balance 815 1382 Lab Results Last 24 Hours: Laboratory Results - last 24 hr 10/01/19 Range/Units 06:50 Sodium 148 H (135-145) mmol/L Potassium 2.4 L* (3.5-5.3) mmol/L Chloride 109 (100-110) mmol/L Carbon Dioxide 25 (21-32) mmol/L BUN 22 H (7-18) mg/dL Creatinine 1.2 (0.70-1.30) mg/dL Est Cr Clr Drug Dosing 37.90 mL/min Estimated GFR (MDRD) 59 L (>60) BUN/Creatinine Ratio 18.3 (9-20) Glucose 162 H (80-116) mg/dL Calcium 7.9 L (8.6-10.2) mg/dL Total Bilirubin 0.9 (0.1-1.3) mg/dL AST 1506 H* D (5-25) IU/L ALT 337 H* D (12-36) U/L Alkaline Phosphatase 74 (56-112) IU/L Total Protein 6.2 (6.0-8.0) g/dL Albumin 2.3 L (3.2-4.6) g/dL Globulin 3.9 g/dL Albumin/Globulin Ratio 0.6 Luis Results Last 24 Hours: Microbiology 09/30/19 01:47 Urine Culture - Preliminary Urine, Voided Gram Negative Rods Med Orders - Current: Current Medications Acetaminophen (Tylenol) 650 mg PO Q4H PRN PRN Reason: Pain (Mild 1-3)/fever Last Admin: 09/30/19 04:01 Dose: 650 mg Documented by: Aspirin (Halfprin) 81 mg PO DAILY [facility] Last Admin: 09/30/19 09:33 Dose: 81 mg Documented by: Ceftriaxone Sodium (Rocephin) 1 gm IVPUSH Q24H [facility] Last Admin: 09/30/19 09:43 Dose: 1 gm Documented by: Cholecalciferol (Vitamin D3) 125 mcg PO DAILY [facility] Last Admin: 09/30/19 11:08 Dose: 125 mcg Documented by: Potassium Chloride/Sodium Chloride (Normal Saline With 20 Meq Kcl) 1,000 mls @ 100 mls/hr IV ASDIRECTED [facility] Last Admin: 10/01/19 04:20 Dose: 100 mls/hr Documented by: Potassium Chloride 20 meq/ (Premix) 100 mls @ 50 mls/hr IV Q6H [facility] Last Admin: 10/01/19 05:24 Dose: 50 mls/hr Documented by: Sodium Chloride (Normal Saline) 1,000 mls @ 999 mls/hr IV ASDIRECTED [facility] Ibuprofen (Motrin) 600 mg PO Q6H PRN PRN Reason: Pain (mild 1-3) Megestrol Acetate (Megace 40 Mg/Ml Susp) 400 mg PO DAILY [facility] Last Admin: 09/30/19 12:48 Dose: 400 mg Documented by: Mirtazapine (Remeron) 30 mg PO BEDTIME [facility] Last Admin: 09/30/19 20:24 Dose: 30 mg Documented by: Ondansetron HCl (Zofran Odt) 4 mg PO Q4H PRN PRN Reason: nausea, able to take PO Potassium Chloride (Klor-Con M20) 40 meq PO TID [facility] Last Admin: 09/30/19 20:24 Dose: 40 meq Documented by: Sodium Chloride (Saline Flush) 10 ml FLUSH ASDIRECTED PRN PRN Reason: Keep Vein Open Last Admin: 09/30/19 18:30 Dose: 10 ml Documented by: Discontinued Medications Cholecalciferol (Vitamin D3) Confirm Administered Dose 100 mcg .ROUTE .STK-MED ONE Stop: 09/30/19 09:58 Last Admin: 09/30/19 11:08 Dose: Not Given Documented by: Potassium Chloride 20 meq/ (Premix) 100 mls @ 50 mls/hr IV ONETIME ONE Stop: 09/29/19 11:58 Last Admin: 09/29/19 10:24 Dose: 50 mls/hr Documented by: Potassium Chloride 20 meq/ (Premix) 100 mls @ 50 mls/hr IV ONETIME ONE Stop: 09/29/19 12:59 Last Admin: 09/29/19 13:39 Dose: 50 mls/hr Documented by: Sodium Chloride (Normal Saline) 1,000 mls @ 125 mls/hr IV ASDIRECTED [facility] Sodium Chloride (Normal Saline) 1,000 mls @ 999 mls/hr IV ONETIME ONE Stop: 09/29/19 18:45 Last Admin: 09/29/19 19:41 Dose: 999 mls/hr Documented by: Lidocaine HCl (Glydo) 6 ml .XX ONETIME ONE Stop: 09/30/19 10:36 Last Admin: 09/30/19 10:58 Dose: 6 ml Documented by: Nicotine (Habitrol) 21 mg TRDERM ONETIME ONE Stop: 09/29/19 17:58 Last Admin: 09/29/19 18:36 Dose: 21 mg Documented by: Non-Formulary Medication (Iron [Iron]) 27 mg PO DAILY [facility] Last Admin: 09/30/19 12:52 Dose: Not Given Documented by: Potassium Chloride (Potassium Chloride) 20 meq IV ONETIME ONE Stop: 09/29/19 11:01 - Exam General: Alert HEENT: Pupils Equal Neck: Supple Lungs: Clear to Auscultation Cardiovascular: Regular Rate GI/Abdominal Exam: No Distention, Tender. No: Mass Sepsis Event Note - Evaluation Sepsis Screening Result: No Definite Risk - Focused Exam Vital Signs: Vital Signs Temp Resp BP Pulse Ox 10/01/19 00:00 97.8 F 16 131/87 100 Date Exam was Performed: 10/01/19 Time Exam was Performed: 08:08 - Problem List & Annotations (1) Cachexia SNOMED Code(s): 764452943 Code(s): R64 - CACHEXIA Status: Acute Current Visit: Yes (2) Tobacco abuse SNOMED Code(s): 012463525 Code(s): Z72.0 - TOBACCO USE Status: Acute Current Visit: Yes (3) HTN (hypertension) SNOMED Code(s): 96849079 Code(s): I10 - ESSENTIAL (PRIMARY) HYPERTENSION Status: Acute Current Visit: Yes Qualifiers: Hypertension type: essential hypertension Qualified Code(s): I10 - Essential (primary) hypertension (4) MDD (major depressive disorder) SNOMED Code(s): 955080393 Code(s): F32.9 - MAJOR DEPRESSIVE DISORDER, SINGLE EPISODE, UNSPECIFIED Status: Acute Current Visit: Yes Qualifiers: Major depression recurrence: single episode (5) Hypokalemia SNOMED Code(s): 29053361 Code(s): E87.6 - HYPOKALEMIA Status: Acute Current Visit: Yes (6) Anorexia SNOMED Code(s): 03120705 Code(s): R63.0 - ANOREXIA Status: Acute Current Visit: Yes (7) ISABELA (acute kidney injury) SNOMED Code(s): 52668154, 15365015 Code(s): N17.9 - ACUTE KIDNEY FAILURE, UNSPECIFIED Status: Acute Current Visit: Yes (8) Asymptomatic bacteriuria SNOMED Code(s): 640122572 Code(s): R82.71 - BACTERIURIA Status: Acute Current Visit: Yes (9) Abnormal LFTs (liver function tests) SNOMED Code(s): 901774727 Code(s): R94.5 - ABNORMAL RESULTS OF LIVER FUNCTION STUDIES Status: Acute Current Visit: Yes (10) Palliative care status SNOMED Code(s): 645624435 Code(s): Z51.5 - ENCOUNTER FOR PALLIATIVE CARE Status: Acute Current Visit: Yes - Problem List Review Problem List Initiated/Reviewed/Updated: Yes - My Orders Last 24 Hours: My Active Orders 09/30/19 09:00 Aspirin [Halfprin] 81 mg PO DAILY Cholecalciferol (Vitamin D3) [Vitamin D3] 125 mcg PO DAILY Megestrol [Megace 40 MG/ML Susp] 400 mg PO DAILY 09/30/19 09:13 OT Evaluation and Treatment [CONS] Routine PT Evaluation and Treatment [CONS] Routine 09/30/19 09:37 Urinary Catheter Assessment [RC] QSHIFT 09/30/19 09:45 Shine Catheter Insertion [Insert Urinary Catheter] [OM.PC] Q24H 09/30/19 10:00 cefTRIAXone [Rocephin] 1 gm IVPUSH Q24H 09/30/19 14:00 Potassium Chloride [Klor-Con M20] 40 meq PO TID 10/01/19 08:01 Chest Abdomen Pelvis wo Cont [CT] Routine 10/01/19 08:15 Sodium Chloride 0.9% [Normal Saline] 1,000 ml IV ASDIRECTED 10/02/19 05:11 CBC WITH AUTO DIFF [HEME] AM COMPREHENSIVE METABOLIC PN,CMP [CHEM] AM - Plan Plan:: I wll obtian CT chest/abd pelvis. I talked with Gerardo-his son. Prognosis is poor.
[2019-10-01] MEDS ORDERED: Sodium Chloride 0.9% 1,000 ML IV SCH (08:15)
[2019-10-01] MEDS ORDERED: Diatrizoate Meglumine/Diatrizoate Sodium 37% 30 ML Bottle PO ONE (08:42)
[2019-10-01] MEDS ORDERED: Iopamidol 755 Mg/ML 100 ML Bottle IV ONE (08:42)
[2019-10-01] MEDS ORDERED: Nicotine 21 MG/24 Hr Patch TRDERM SCH (08:45)
[2019-10-01] MEDS: Potassium Chloride 20 MEQ Tab.ER PO SCH ×3 (09:09→21:38)
[2019-10-01] MEDS: Cholecalciferol (Vitamin D3) 25 MCG Tab PO SCH (09:14)
[2019-10-01] MEDS: Aspirin 81 MG Tab.EC PO SCH (09:17)
[2019-10-01] MEDS: Megestrol Susp 40 MG/ML ML (240 ML Bottle) PO SCH (09:22)
[2019-10-01] MEDS: cefTRIAXone 1 GM Vial IVPUSH SCH (10:32)
[2019-10-01] MEDS: Sodium Chloride 0.9% 10 ML Syringe FLUSH PRN (10:33)
--- NOTE | 2019-10-01 12:05 | CT ---
INDICATION: Abnormal liver enzymes. CT CHEST, ABDOMEN AND PELVIS WITH CONTRAST: Spiral 3.75 mm axial sections were obtained through the chest, abdomen and pelvis with 59 cc Isovue-[id number] at 1.7 cc/second with sagittal and coronal reconstructions 10/01/19 - no comparisons. Total exam DLP was 796.12 mGy-cm. CT CHEST: Examination of the chest revealed an appearance of patchy infiltrative changes in the right upper lobe posterior basilar segment, minimally in the same area of the left upper lobe and scattered throughout both upper lobes to a lesser degree with more prominent infiltration in the right lower lobe throughout most of the lobe but less prominent in the basilar areas on the right with relatively minimal infiltrate suggested on the left. However, there are bilateral pleural effusions, somewhat larger on the left than right for the most part of small size. Findings may be on the basis of bilateral pneumonia, possibly due to aspiration. A process such as viral pneumonia would be a consideration especially with somewhat peripheral appearance in the lower lobes. The heart did not appear grossly enlarged. No pericardial effusion was seen. No definite mediastinal mass was noted. Mediastinal lymphadenopathy is moderate and nonspecific with one somewhat prominent node precarinal in location measuring approximately 17 mm. IMPRESSION: Bilateral pleural parenchymal changes which are likely on the basis of pneumonia and pleuritis. Most severe changes are on the right, etiology indeterminate. Could be on the basis of aspiration or possibly viral changes but should be correlated clinically. CT ABDOMEN AND PELVIS: Examination of the abdomen and pelvis was obtained by CT as noted above - no comparison. The aorta is calcified as are proximal renal arteries, superior mesenteric artery, iliac, and femoral arteries. No aneurysmal dilatation of the aorta was noted. A Shine catheter is noted in the urinary bladder with thickening of the wall raising question of cystitis or possibly trabeculation with cystitis felt to be more likely since the prostate does not appear grossly enlarged. There did appear to be some air in the urinary bladder which likely is on the basis of the Shine. Multiple loops of fluid-filled small bowel are noted with air-fluid levels which may be on the basis of paralytic ileus or process such as gastroenteritis. Gas and stool is noted in the colon - with diverticulosis of the sigmoid and to a much lesser extent descending colon but no definite evidence of diverticulitis. No evidence of free air is noted intraperitoneally. With slight dilatation of the fluid-filled loops of small bowel with air-fluid levels, the possibility of a distal small bowel obstruction - distal ileum would be a consideration although a specific site of a mechanically obstructive process was not identified. If a mechanically obstructive process is present, it would be either early or partial with the amount of gas and stool in the colon. Also there is one suspicious area of possible narrowing of distal ileum in the right lower quadrant/upper pelvis area suggested on coronal image 55 and axial images 60 to 66. No other organomegaly or free fluid collections were suggested except for somewhat distended appearing stomach filled with air and fluid. The liver was not well seen. There is a calcification adjacent to the gallbladder but no definite calculi within the gallbladder. The pancreas overall had a normal size and shape with no definite focal mass lesions. There were some calcifications in the head of the pancreas and a few scattered in the body and tail area which may be on the basis of previous bouts of pancreatitis. The relatively poorly visualized liver, adrenal glands, spleen, and kidneys appear fairly normal. There is some renal fascial thickening which may be on the basis of minimal renal cortical scarring - previous bouts of pyelonephritis likely the cause. The appendix is absent compatible with history of its removal. Endplate compression is suggested inferiorly at L5 of indeterminate age with a few endplate compressions at the L2-3 interspace and inferiorly at L3 also. These are of indeterminate age. IMPRESSION: 1. Numerous loops of mildly dilated small bowel with air-fluid levels, somewhat dilated stomach with air-fluid level. Possibility of a distal small bowel obstruction would be a consideration with this appearance especially in the area of the distal ileum-right lower quadrant-upper right pelvis - correlate clinically. 2. ASD. 3. 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 4. Mostly sigmoid diverticulosis without definite evidence of diverticulitis. 5. Calcifications compatible with bouts of previous pancreatitis. No acute pancreatitis suggested at this time. 6. Minimal renal cortical scarring. 7. Thickening of the wall of the urinary bladder may be on the basis of cystitis. Urinary bladder catheter is noted in place. Report was called Dr. Kurtz at 1119 hours. [facility]
[2019-10-01] MEDS ORDERED: NS + KCl 20mEq/L 1,000 ML IV SCH (17:00)
[2019-10-01] MEDS: Mirtazapine 30 MG Tab PO SCH (21:38)
[2019-10-01] MEDS ORDERED: LORazepam 2 MG/ML SDV IV SCH ×2 (22:00→23:00)
[2019-10-01] MEDS ORDERED: LORazepam 1 MG Tab PO SCH (22:00)
[2019-10-01] MEDS: Potassium Chloride 20 MEQ Packet PO SCH (22:27)
[2019-10-01] MEDS: LORazepam 1 MG Tab PO SCH (23:02)
[2019-10-02] MEDS: Potassium Chloride 20 MEQ in Premix Bag 1 BAG IV SCH ×2 (00:59→06:11)
[2019-10-02] MEDS: Potassium Chloride 20 MEQ Packet PO SCH ×2 (01:46→02:00)
[2019-10-02] MEDS: LORazepam 1 MG Tab PO SCH (02:22)
[2019-10-02] MEDS: NS + KCl 20mEq/L 1,000 ML IV SCH ×2 (04:27→04:48)
[2019-10-02] MEDS ORDERED: NS + KCl 20mEq/L 1,000 ML IV SCH (04:45)
[2019-10-02 06:10] VITALS: BP 99/65
[2019-10-02] MEDS: Sodium Chloride 0.9% 10 ML Syringe FLUSH PRN ×4 (09:00→12:32)
[2019-10-02] MEDS ORDERED: Scopolamine 1.5 MG Transdermal Patch TOP PRN (09:16)
[2019-10-02] MEDS ORDERED: LORazepam 0.5 MG Tab PO PRN (09:19)
[2019-10-02] MEDS ORDERED: LORazepam 2 MG/ML SDV IVPUSH PRN ×2 (09:25→12:51)
[2019-10-02] MEDS ORDERED: Scopolamine 1.5 MG Transdermal Patch TOP SCH (09:30)
[2019-10-02] MEDS ORDERED: Hyoscyamine 0.125 MG Tab.SL PO PRN ×2 (09:34→14:38)
[2019-10-02] MEDS: Morphine 10 MG/0.5 ML Oral Syringe SL PRN ×4 (09:39→14:34)
[2019-10-02] MEDS ORDERED: LORazepam 2 MG/ML SDV SUBCUT PRN (10:12)
[2019-10-02] MEDS ORDERED: LORazepam 2 MG/ML SDV IV PRN (10:51)
[2019-10-02 13:38] VITALS: PULSE 132
--- NOTE | 2019-10-02 14:17 | PN ---
DATE SEEN: 10/02/2019 REASON FOR ADMISSION: Hypokalemia. HISTORY OF PRESENT ILLNESS: This is a 79-year-old admitted for hypokalemia. Overnight, he was very agitated, showed marked decline in alteration of mental status and also in vital signs. There has been no fever or chills. MEDICATIONS: Reviewed. PHYSICAL EXAMINATION: GENERAL: He is very sick appearing. VITAL SIGNS: Pulse 112, oxygenation 94% on 4 L of nasal cannula, respiratory rate is 35. ENT: Normal. CHEST: Increased work of breathing. CARDIOVASCULAR: Tachycardia. EXTREMITIES: Mottled, pallor. MENTAL STATUS: Barely arousable. LABORATORY DATA: Potassium is normal at 4.9, however, his chloride is 117 and sodium is 133. BNP is more than 35,000 and his alkaline phosphatase went up to 76, ALT to 637, and AST to 2021. IMPRESSION: 1. Alteration of mental status. 2. Liver failure, fulminant. 3. Congestive heart failure. 4. Improved hypokalemia. 5. Dementia. PLAN: We had a long conversation at the bedside with the family. They have elected to withdraw care and place him on comfort measures. As such, I will change him to DNR/DNI and discontinue labs, IV fluids. Give him morphine, lorazepam, atropine, scopolamine patch as needed for comfort measures and end of life. I spent more than 30 minutes in coordinating his care this morning. /[id number] LULI/BANDAR
--- NOTE | 2019-10-03 12:05 | DISCH ---
DISCHARGE DATE: 10/02/2019 DATE OF : 10/02/2019 REASON FOR ADMISSION: 1. Hypokalemia. 2. Cachexia. 3. Tobacco abuse. 4. Hypertension. 5. Dehydration. REASON FOR : Acute multiorgan failure secondary to fulminant hepatic failure, respiratory distress. BRIEF HISTORY: A 79-year-old, who came in because of weakness, was found to have potassium of less than 1.5. He has lost a lot of weight. He is known to smoke more than 2 packs of cigarettes per day. He was admitted, treated with IV fluids and potassium replacement. Improved the potassium, however, his respiratory status worsened, and his liver functions went up. He on 10/02/2019 after the family withdrew care. I spent more than 35 minutes in the discharge. /[id number] LULI/BANDAR
== END 2019-10-02 16:32 | disposition expired | DRG 682 ==
LOC: FB.ED 08:51 → FB.MS 12:04
PROVIDERS: ADMIT Family Medicine; ATTEND Family Medicine
DX: N17.9 Acute kidney failure, unspecified (principal); I10 Essential (primary) hypertension; K72.00 Acute and subacute hepatic failure without coma; F17.200 Nicotine dependence, unspecified, uncomplicated; R15.9 Full incontinence of feces; R32 Unspecified urinary incontinence; R53.1 Weakness; G93.41 Metabolic encephalopathy; F10.21 Alcohol dependence, in remission; R64 Cachexia; E87.6 Hypokalemia; F17.210 Nicotine dependence, cigarettes, uncomplicated; Z51.5 Encounter for palliative care; Z66 Do not resuscitate; K72.90 Hepatic failure, unspecified without coma; F32.9 Major depressive disorder, single episode, unspecified; I11.0 Hypertensive heart disease with heart failure; E86.0 Dehydration; I50.9 Heart failure, unspecified; W19.XXXA Unspecified fall, initial encounter; F03.90 Unspecified dementia, unspecified severity, without behavioral disturbance, psychotic disturbance, mood disturbance, and anxiety; R63.0 Anorexia; R82.71 Bacteriuria; Z79.82 Long term (current) use of aspirin; Z79.899 Other long term (current) drug therapy; Z90.89 Acquired absence of other organs; Z90.49 Acquired absence of other specified parts of digestive tract; Z68.22 Body mass index [BMI] 22.0-22.9, adult; Z20.828 Contact with and (suspected) exposure to other viral communicable diseases
CPT/HCPCS: 36415; 51702; 70450; 71045; 71250; 71260; 74176; 74177; 80048; 80053; 81003; 83735; 83880; 85025; 87086; 87088; 87186; 93005; 93010; 94760; 96365; 96366; 97161-GP; 97165-GO; 99283; 99285-25; A9270-GY; J0696; J2060; J3480; J7030; Q9963; Q9967; U0002